=== PATIENT | male | born 1975 | race Hispanic/Latino ===

== ENCOUNTER 2018-05-12 20:12 | Emergency (ER) | payer SELFPAY ==
[2018-05-12 21:14] LABS: Absolute Lymphocytes (CBC) 2.3 K/uL (0.7-4.9); Absolute Monocytes 0.8 K/uL (0.1-1.3); Absolute Neutrophil 7.3 K/uL (1.8-8.0); Basophils % 0.5 % (0-1.3); Eosinophils % 1.1 % (0-4.4); Hematocrit 49.5 % (39.6-49.0); Lymphocytes % 21.5 % (15.3-44.8); MCH 28.5 pg (27.0-35.0); MCV 86.4 fL (80-100); MPV 8.1 fL (7.6-11.3); Monocytes % 7.6 % (3.3-12.3); RBC Red Blood Cell Count 5.73 M/uL (4.33-5.43)
[2018-05-12] MEDS ORDERED: NA CHLORIDE 0.9% 1,000 ML ONE (21:16)
[2018-05-12 21:34] LABS: Albumin 3.4 g/dL (3.4-5.0); Bilirubin Direct 0.1 mg/dL (0-0.2); Bilirubin Total 0.4 mg/dL (0.2-1.0); Potassium 3.4 mmol/L (3.5-5.1); Protein, Total 8.1 g/dL (6.4-8.2)
[2018-05-12 21:46] LABS: Urine Blood TRACE (NEG); Urine Glucose TRACE (NEG); Urine Protein 1+ (NEG)
[2018-05-12 21:47] LABS: Urine Bacteria <20 /HPF (NONE SEEN); Urine Culture Reflex Order NOT NEEDED; Urine RBC <5 /HPF (NONE SEEN)
--- NOTE | 2018-05-12 22:13 | RAD REPORT ---
EXAM DESCRIPTION: CT - Abdomen Pelvis W Contrast - 05/12/2018 9:57 pm CLINICAL HISTORY: Lower abdominal pain, cramping COMPARISON: None. TECHNIQUE: Biphasic, helical CT imaging of the abdomen and pelvis was performed following 100 ml non -ionic IV contrast. Oral contrast was given. All CT scans are performed using dose optimization technique as appropriate and may include automated exposure control or mA/KV adjustment according to patient size. FINDINGS: No suspicious findings in the lung bases. The liver, spleen, and pancreas show no suspicious findings. Gallbladder and biliary tree are also wi thout suspicious finding. Symmetric renal function is seen with no hydronephrosis or suspicious renal mass. Minimal focus of di minished enhancement in the medial lower pole right kidney and in the lateral upper pole left kidney. These are minimal findings. Pyelonephritis is doubtful but can be correlated with any UA abnormality . No gastric dilatation or wall thickening. No small bowel abnormality. The appendix is normal. From ce cum through descending colon no significant findings seen. 8 centimeter long segment of proximal sigm oid colon shows wall thickening. There is stranding in the adjacent fat. Patient does have diverticul osis. No abscess or definitive extraluminal air. Air is seen within diverticula. No abscess or surgic ally emergent finding. No free fluid. No other area of inflammatory stranding. No mass or bulky lymphadenopathy. Small fat only umbilical hernia. Bilateral fat filled inguinal hernia is also present. The urinary bladder is w ithout significant finding. No adrenal abnormality. No suspicious bony findings. IMPRESSION: Proximal sigmoid colon shows 8 cm segment of wall thickening with inflammatory stranding . Acute diverticulitis is the most likely etiology. No abscess or surgically emergent finding. Colon malignancy is unlikely. Follow-up colonoscopy can be performed after medical management of diverticul itis. Minimal enhancement abnormalities of each kidney doubtful as being clinically significant.
--- NOTE | 2018-05-12 23:07 | ER ---
Nurse's Notes [facility] Name: Esdras Rodriguez Age: 42 yrs Sex: Male : 1975 Arrival Date: 05/12/2018 Time: 20:16 Bed 18 Private MD: Diagnosis: Abdominal and pelvic pain;Diverticulitis of sigmoid colon Presentation: 05/12 20:22 Presenting complaint: Patient states: Lower abdominal cramping for 2 weeks. Denies aj N/V/D or blood in stool. Transition of care: patient was not received from another setting of care. Onset of symptoms was April 30, 2018. Risk Assessment: Do you want to hurt yourself or someone else? Patient reports no desire to harm self or others. Initial Sepsis Screen: Does the patient meet any 2 criteria? No. Patient's initial sepsis screen is negative. Does the patient have a suspected source of infection? No. Patient's initial sepsis screen is negative. Care prior to arrival: None. 20:22 Method Of Arrival: Ambulatory aj 20:22 Acuity: JAZLYN 3 aj Triage Assessment: 20:23 General: Appears in no apparent distress. uncomfortable, Behavior is calm, cooperative, aj appropriate for age. Pain: Complains of pain in right lower quadrant and left lower quadrant Pain currently is 5 out of 10 on a pain scale. at worst was 8 out of 10 on a pain scale. Neuro: Level of Consciousness is awake, alert, obeys commands, Oriented to person, place, time, situation, Appropriate for age. Respiratory: Airway is patent Respiratory effort is even, unlabored, Respiratory pattern is regular, symmetrical. GI: Reports lower abdominal pain. Derm: Skin is intact, is healthy with good turgor, Skin is pink, warm \T\ dry. normal. Historical: - Allergies: 20:23 No Known Allergies; aj - Home Meds: 20:23 None [Active]; aj - PMHx: 20:23 None; aj - PSHx: 20:23 None; aj - Immunization history:: Adult Immunizations up to date. - Social history:: Smoking status: Patient/guardian denies using tobacco. - Ebola Screening: : Patient negative for fever greater than or equal to 101.5 degrees Fahrenheit, and additional compatible Ebola Virus Disease symptoms Patient denies exposure to infectious person Patient denies travel to an Ebola-affected area in the 21 days before illness onset No symptoms or risks identified at this time. Screenin:41 Abuse screen: Denies threats or abuse. Nutritional screening: No deficits noted. jd3 Tuberculosis screening: No symptoms or risk factors identified. Fall Risk Ambulatory Aid- None/Bed Rest/Nurse Assist (0 pts). Gait- Normal/Bed Rest/Wheelchair (0 pts) Mental Status- Oriented to own ability (0 pts). Total Webber Fall Scale indicates No Risk (0-24 pts). Assessment: 20:38 General: Appears uncomfortable, Behavior is calm, cooperative, appropriate for age. jd3 Pain: Complains of pain in right lower quadrant and left lower quadrant Pain currently is 8 out of 10 on a pain scale. Quality of pain is described as aching, sharp. Neuro: Level of Consciousness is awake, alert, obeys commands, Oriented to person, place, time, situation, Appropriate for age. Cardiovascular: Heart tones S1 S2 present Capillary refill < 3 seconds Patient's skin is warm and dry. Respiratory: Airway is patent Respiratory effort is even, unlabored, Respiratory pattern is regular, symmetrical, Breath sounds are clear bilaterally. GI: Abdomen is round Bowel sounds present X 4 quads. Abd is soft X 4 quads Abdomen is tender to palpation in right lower quadrant and left lower quadrant Patient currently denies bloody stool, constipation, diarrhea, nausea, vomiting. : No signs and/or symptoms were reported regarding the genitourinary system. EENT: No signs and/or symptoms were reported regarding the EENT system. Derm: Skin is intact, Skin is dry, Skin is normal, Skin temperature is warm. Musculoskeletal: Circulation, motion, and sensation intact. Range of motion: intact in all extremities. 21:30 Reassessment: Patient appears in no apparent distress at this time. Patient and/or jd3 family updated on plan of care and expected duration. Pain level reassessed. Patient is alert, oriented x 3, equal unlabored respirations, skin warm/dry/pink. 22:03 Reassessment: Patient appears in no apparent distress at this time. Patient and/or jd3 family updated on plan of care and expected duration. Pain level reassessed. Patient is alert, oriented x 3, equal unlabored respirations, skin warm/dry/pink. 23:04 Reassessment: Patient appears in no apparent distress at this time. Patient and/or jd3 family updated on plan of care and expected duration. Pain level reassessed. Patient is alert, oriented x 3, equal unlabored respirations, skin warm/dry/pink. 23:25 Reassessment: Patient appears in no apparent distress at this time. Patient and/or jd3 family updated on plan of care and expected duration. Pain level reassessed. Patient is alert, oriented x 3, equal unlabored respirations, skin warm/dry/pink. pt reported understanding of discharge instructions, even and steady gait upon discharge. Patient states feeling better. Vital Signs: 20:23 BP 153 / 95; Pulse 103; Resp 20; Temp 99.7; Pulse Ox 98% on R/A; Weight 102.06 kg; aj Height 5 ft. 5 in. (165.10 cm); 22:02 BP 135 / 69; Pulse 97; Resp 17 S; Pulse Ox 97% on R/A; jd3 23:03 BP 138 / 74; Pulse 94; Resp 16 S; Pulse Ox 98% on R/A; jd3 20:23 Body Mass Index 37.44 (102.06 kg, 165.10 cm) aj ED Course: 20:16 Patient arrived in ED. al2 20:23 Triage completed. aj 20:23 Arm band placed on right wrist. Patient placed in waiting room. aj 20:[address], [place] is Primary Nurse. jd3 20:38 Tim Murcia MD is Attending Physician. kdr 20:38 Willis Lr NP is PHCP. pm1 20:41 Patient has correct armband on for positive identification. Bed in low position. Call jd3 light in reach. Side rails up X 1. Adult w/ patient. 21:00 Inserted saline lock: 20 gauge in right antecubital area, using aseptic technique. jd3 Blood collected. 21:20 Radiology exam delayed due to lab results not completed at this time. (BUN/Creatinine). sj 21:56 CT Abd/Pelvis - W/Contrast In Process Unspecified. EDMS 23:24 No provider procedures requiring assistance completed. IV discontinued, intact, jd3 bleeding controlled, No redness/swelling at site. Pressure dressing applied. Administered Medications: 21:17 Drug: NS 0.9% 1000 ml Route: IV; Rate: 1 bolus; Site: right antecubital; jd3 23:07 Follow up: Response: No adverse reaction; IV Status: Completed infusion; IV Intake: jd3 1000ml 23:14 Drug: Flagyl 500 mg Route: PO; jd3 23:26 Follow up: Response: Medication administered at discharge. jd3 23:14 Drug: Cipro 500 mg Route: PO; jd3 23:26 Follow up: Response: Medication administered at discharge. jd3 Intake: 23:07 IV: 1000ml; Total: 1000ml. jd3 Outcome: 23:07 Discharge ordered by . ulices 23:24 Discharged to home ambulatory, with family. jd3 23:24 Condition: stable 23:24 Discharge instructions given to patient, family, Instructed on discharge instructions, follow up and referral plans. medication usage, Demonstrated understanding of instructions, follow-up care, medications, Prescriptions given X 4. 23:26 Patient left the ED. jd3 Signatures: Dispatcher [employer] Katie Arvizu RN RN aj Rittger, Kevin, MD MD kdr Jones, Susan sj Marinas, Patrick, NP SHANK TAPPER pm1 Du Lane RN RN jd3 Love, Angelica al2
--- NOTE | 2018-05-12 23:07 | EDPHYS ---
Physician Documentation [facility] Name: Esdras Rodriguez Age: 42 yrs Sex: Male : 1975 Arrival Date: 05/12/2018 Time: 20:16 Bed 18 Private MD: ED Physician Tim Murcia HPI: 05/12 22:33 This 42 yrs old Male presents to ER via Ambulatory with complaints of kdr Abdominal Pain. 22:33 The patient presents with abdominal pain in the lower abdomen. Onset: The kdr symptoms/episode began/occurred gradually, 1 week(s) ago. The symptoms do not radiate. Associated signs and symptoms: none. The symptoms are described as achy, crampy, intermittent, vague, waxing/waning. Modifying factors: The symptoms are alleviated by nothing, the symptoms are aggravated by nothing. Severity of pain: At its worst the pain was mild moderate just prior to arrival, in the emergency department the pain is unchanged. The patient has not experienced similar symptoms in the past. The patient has not recently seen a physician. Historical: - Allergies: 20:23 No Known Allergies; aj - Home Meds: 20:23 None [Active]; aj - PMHx: 20:23 None; aj - PSHx: 20:23 None; aj - Immunization history:: Adult Immunizations up to date. - Social history:: Smoking status: Patient/guardian denies using tobacco. - Ebola Screening: : Patient negative for fever greater than or equal to 101.5 degrees Fahrenheit, and additional compatible Ebola Virus Disease symptoms Patient denies exposure to infectious person Patient denies travel to an Ebola-affected area in the 21 days before illness onset No symptoms or risks identified at this time. ROS: 22:33 Constitutional: Negative for fever, chills, and weight loss, Eyes: Negative for injury, kdr pain, redness, and discharge, ENT: Negative for injury, pain, and discharge, Neck: Negative for injury, pain, and swelling, Cardiovascular: Negative for chest pain, palpitations, and edema, Respiratory: Negative for shortness of breath, cough, wheezing, and pleuritic chest pain, Back: Negative for injury and pain, : Negative for injury, bleeding, discharge, and swelling, MS/Extremity: Negative for injury and deformity, Skin: Negative for injury, rash, and discoloration, Neuro: Negative for headache, weakness, numbness, tingling, and seizure activity. Psych: Negative for depression, anxiety, suicide ideation, homicidal ideation, and hallucinations, Allergy/Immunology: Negative for hives, rash, and allergies, Endocrine: Negative for neck swelling, polydipsia, polyuria, polyphagia, and marked weight changes, Hematologic/Lymphatic: Negative for swollen nodes, abnormal bleeding, and unusual bruising. 22:33 Abdomen/GI: Positive for abdominal pain, Negative for nausea, vomiting, and diarrhea, constipation, anorexia, dysphagia, hematemesis. Exam: 22:33 Constitutional: This is a well developed, well nourished patient who is awake, alert, kdr and in no acute distress. Head/Face: Normocephalic, atraumatic. Eyes: Pupils equal round and reactive to light, extra-ocular motions intact. Lids and lashes normal. Conjunctiva and sclera are non-icteric and not injected. Cornea within normal limits. Periorbital areas with no swelling, redness, or edema. Neck: Trachea midline, no thyromegaly or masses palpated, and no cervical lymphadenopathy. Supple, full range of motion without nuchal rigidity, or vertebral point tenderness. No Meningismus. Chest/axilla: Normal chest wall appearance and motion. Nontender with no deformity. No lesions are appreciated. Cardiovascular: Regular rate and rhythm with a normal S1 and S2. No gallops, murmurs, or rubs. Normal PMI, no JVD. No pulse deficits. Respiratory: Lungs have equal breath sounds bilaterally, clear to auscultation and percussion. No rales, rhonchi or wheezes noted. No increased work of breathing, no retractions or nasal flaring. Back: No spinal tenderness. No costovertebral tenderness. Full range of motion. Skin: Warm, dry with normal turgor. Normal color with no rashes, no lesions, and no evidence of cellulitis. MS/ Extremity: Pulses equal, no cyanosis. Neurovascular intact. Full, normal range of motion. Neuro: Awake and alert, GCS 15, oriented to person, place, time, and situation. Cranial nerves II-XII grossly intact. Motor strength 5/5 in all extremities. Sensory grossly intact. Cerebellar exam normal. Normal gait. Psych: Awake, alert, with orientation to person, place and time. Behavior, mood, and affect are within normal limits. 22:33 Abdomen/GI: Inspection: abdomen appears normal, Bowel sounds: normal, Palpation: soft, mild abdominal tenderness, in the right lower quadrant and left lower quadrant. Vital Signs: 20:23 BP 153 / 95; Pulse 103; Resp 20; Temp 99.7; Pulse Ox 98% on R/A; Weight 102.06 kg; aj Height 5 ft. 5 in. (165.10 cm); 22:02 BP 135 / 69; Pulse 97; Resp 17 S; Pulse Ox 97% on R/A; jd3 23:03 BP 138 / 74; Pulse 94; Resp 16 S; Pulse Ox 98% on R/A; jd3 20:23 Body Mass Index 37.44 (102.06 kg, 165.10 cm) aj MDM: 22:33 Data reviewed: vital signs, nurses notes. Counseling: I had a detailed discussion with kdr the patient and/or guardian regarding: the historical points, exam findings, and any diagnostic results supporting the discharge/admit diagnosis, lab results, radiology results. 23:07 Patient medically screened. [facility] 05/12 20:46 Order name: Basic Metabolic Panel; Complete Time: 22:01 [facility] 05/12 20:46 Order name: CBC with Diff; Complete Time: 22:01 [facility] 05/12 20:46 Order name: Creatinine for Radiology; Complete Time: 22:01 [facility] 05/12 20:46 Order name: Hepatic Function; Complete Time: 22:01 [facility] 05/12 20:46 Order name: Lipase; Complete Time: 22:01 [facility] 05/12 20:46 Order name: Urine Microscopic Only; Complete Time: 22:01 [facility] 05/12 20:46 Order name: IV Saline Lock; Complete Time: 21:10 [facility] 05/12 20:46 Order name: Labs collected and sent; Complete Time: 21:10 [facility] 05/12 20:46 Order name: Urine Dipstick-Ancillary (obtain specimen); Complete Time: 21:10 [facility] 05/12 21:06 Order name: CT Abd/Pelvis - W/Contrast; Complete Time: 23:03 [facility] 05/12 21:21 Order name: Urine Dipstick--Ancillary (enter results) rg2 Administered Medications: 21:17 Drug: NS 0.9% 1000 ml Route: IV; Rate: 1 bolus; Site: right antecubital; jd3 23:07 Follow up: Response: No adverse reaction; IV Status: Completed infusion; IV Intake: jd3 1000ml 23:14 Drug: Flagyl 500 mg Route: PO; jd3 23:26 Follow up: Response: Medication administered at discharge. jd3 23:14 Drug: Cipro 500 mg Route: PO; jd3 23:26 Follow up: Response: Medication administered at discharge. jd3 Disposition: 05/12/18 23:07 Discharged to Home. Impression: Abdominal and pelvic pain, Diverticulitis of sigmoid colon. - Condition is Stable. - Discharge Instructions: Diverticulitis, [id number], Abdominal Pain, Adult, [id number]. - Prescriptions for Bentyl 20 mg Oral Tablet - take 2 tablets by ORAL route every 6 hours As needed; 20 tablet. Cipro 500 mg Oral Tablet - take 1 tablet by ORAL route every 12 hours for 10 days; 20 tablet. Flagyl 500 mg Oral Tablet - take 1 tablet by ORAL route every 6 hours for 10 days; 40 tablet. Tramadol 50 mg Oral Tablet - take 1 tablet by ORAL route every 8 hours as needed; 12 tablet. - Medication Reconciliation Form, Thank You Letter, Antibiotic Education, Prescription Opioid Use form. - Follow up: Private Physician; When: 2 - 3 days; Reason: If symptoms return, Further diagnostic work-up, Recheck today's complaints, Continuance of care, Re-evaluation by your physician. - Problem is new. - Symptoms have improved. Signatures: Dispatcher [employer] EDKatie Givens RN RN aj Rittger, Kevin, MD MD kdr Davies, Jonathon, RN RN jd3 Corrections: (The following items were deleted from the chart) 23:26 23:07 05/12/2018 23:07 Discharged to Home. Impression: Abdominal and pelvic pain; jd3 Diverticulitis of sigmoid colon. Condition is Stable. Forms are Medication Reconciliation Form, Thank You Letter, Antibiotic Education, Prescription Opioid Use. Follow up: Private Physician; When: 2 - 3 days; Reason: If symptoms return, Further diagnostic work-up, Recheck today's complaints, Continuance of care, Re-evaluation by your physician. Problem is new. Symptoms have improved. kdr
[2018-05-12] MEDS ORDERED: metroNIDAZOLE 500 MG TABLET ONE (23:13)
[2018-05-12] MEDS ORDERED: CIPROFLOXACIN HCL 500 MG TAB ONE (23:14)
== END 2018-05-12 23:26 | disposition home or self-care (01) ==
LOC: ER 20:12
DX: K57.32 Diverticulitis of large intestine without perforation or abscess without bleeding (principal)
CPT/HCPCS: 36415; 74177; 80048; 80076; 81003; 81015; 83690; 85025; 96360; 96361; 99284; J7030; Q9967